=== PATIENT | female | born 1960 | race Hispanic/Latino ===

== ENCOUNTER → 2022-08-05 | Outpatient (CLI) | payer BC | END | disposition home or self-care (01) | LOC: SHCH 13:14 | PROVIDERS: ATTEND Student in an Organized Health Care Education/Training Program | DX: I11.9 Hypertensive heart disease without heart failure (principal); R07.9 Chest pain, unspecified; E78.5 Hyperlipidemia, unspecified | CPT/HCPCS: 93306 ==